=== PATIENT | female | born 1995 | race American Indian/Alaskan Native ===

== ENCOUNTER 2017-02-21 01:39 | Emergency (ER) | payer OTHER ==
[2017-02-21] MEDS ORDERED: NACL 0.9% 1000 ML 1,000 ML IV ONE (01:45)
--- NOTE | 2017-02-21 01:46 | Emergency Department Report ---
ED Seizure HPI - General Chief Complaint: Seizure Stated Complaint: SEIZURE Time Seen by Provider: 02/21/17 01:45 Source: family, RN notes reviewed - History of Present Illness Initial Comments: Patient is a 21 female with a history of seizure disorder presenting status post seizure witnessed by a friend. Patient reports she has a seizure disorder last seizure was in October, but has been noncompliant on her medications. The patient reports she takes any tunneling. Patient cannot recall the dosages but she does have her prescription at home. Patient reports she's had a mild headache for the last few days but has been feeling her normal self prior to today. Otherwise no fevers, chills, dizziness, nausea, vomiting, tongue biting , chest pain, shortness of breath, urinary or bowel incontinence, trauma, or sick contacts. MD Complaint: possible seizure ED Review of Systems ROS: Stated complaint: SEIZURE Other details as noted in HPI Comment: All other systems reviewed and negative ED Past Medical Hx - Past Medical History Previous Medical History?: Yes Hx Seizures: Yes (Takes dilantin) ED Physical Exam - General General appearance: alert, in no apparent distress - Head Head exam: Present: atraumatic, normocephalic - Eye Eye exam: Present: normal appearance - ENT ENT exam: Present: mucous membranes moist - Neck Neck exam: Present: normal inspection - Respiratory Respiratory exam: Present: normal lung sounds bilaterally. Absent: respiratory distress - Cardiovascular Cardiovascular Exam: Present: regular rate, normal rhythm. Absent: systolic murmur, diastolic murmur, rubs, gallop - GI/Abdominal GI/Abdominal exam: Present: soft, normal bowel sounds - Extremities Exam Extremities exam: Present: normal inspection - Back Exam Back exam: Present: normal inspection - Neurological Exam Neurological exam: Present: alert, oriented X3 - Psychiatric Psychiatric exam: Present: normal affect, normal mood - Skin Skin exam: Present: warm, dry, intact, normal color. Absent: rash ED Course Vital Signs 02/21/17 02/21/17 03:24 03:33 Temperature 99.0 F Pulse Rate 93 H Respiratory 20 Rate Blood Pressure 121/73 O2 Sat by Pulse 99 99 Oximetry ED Medical Decision Making - Lab Data Result diagrams: 02/21/17 01:50 02/21/17 01:50 - EKG Data -: EKG Interpreted by Me - EKG Data 02/21/17 04:23 Time 417. Sinus rhythm with sinus arrhythmia at 72 bpm, RAD, left posterior fascicular block, QTC 400 ms, no ST changes no STEMI - Medical Decision Making Had discussion with patient at bedside regarding the importance of medication compliance. Pt cannot recall the dosage of her dilantin, will give her a dilantin 1gm IVPB load here in the ED Pt advised not to operate a vehicle or machinery for 6 months or until she is cleared by her PMD/ Neurologist. Lactic acid noted to be 3.3. This is elevated in the setting of her seizure. Pt did receive a 1L NS IVF bolus s/p blood draw. Pt is not septic or dehydrated Critical care attestation.: If time is entered above; I have spent that time in minutes in the direct care of this critically ill patient, excluding procedure time. ED Disposition Clinical Impression: Seizure disorder Disposition: DISCHARGED TO HOME OR SELFCARE Is pt being admited?: No Condition: Stable Instructions: Epilepsy (ED) Additional Instructions: YOU ARE NOT TO DRIVE OR OPERATE MACHINERY FOR THE NEXT 6MONTHS OR UNTIL YOU ARE CLEARED BY A PHYSICIAN TO RESUME DRIVING Referrals: PRIMARY CARE, [Primary Care Provider] - 3-5 Days
[2017-02-21 02:05] LABS: Basophils % (Auto) 0.5 % (0.0-1.8); Eosinophils % (Auto) 0.5 % (0.0-4.3); Hematocrit 38.6 % (30.3-42.9); Hemoglobin 12.8 gm/dl (10.1-14.3); Mean Corpuscular HGB Conc 33 % (30-34); Mean Corpuscular Hemoglobin 30 pg (28-32); Mean Corpuscular Volume 91 fl (79-97); Platelet Count 374 K/mm3 (140-440); Red Blood Count 4.24 M/mm3 (3.65-5.03); Red Cell Distribution Width 13.7 % (13.2-15.2); White Blood Count 10.2 K/mm3 (4.5-11.0)
[2017-02-21 02:26] LABS: Alanine Aminotransferase 7 units/L (7-56); Albumin 4.1 g/dL (3.9-5); Albumin/Globulin Ratio 1.3 %; Alkaline Phosphatase 52 units/L (35-129); Anion Gap 23 mmol/L; BUN/Creatinine Ratio 17.14; Blood Urea Nitrogen 12 mg/dL (7-17); Calcium 9.3 mg/dL (8.4-10.2); Carbon Dioxide 17 mmol/L (22-30); Chloride 102.2 mmol/L (98-107); Glucose 110 mg/dL (65-100); Potassium 3.3 mmol/L (3.6-5.0); Sodium 139 mmol/L (137-145); Total Protein 7.2 g/dL (6.3-8.2)
[2017-02-21] MEDS ORDERED: K-DUR PO ONE (03:02)
[2017-02-21] MEDS ORDERED: DILANTIN 1,000 MG in NACL 0.9% 250ML 250 ML IV ONE (03:21)
[2017-02-21 03:59] LABS: Urine Drugs of Abuse Note Disclamer
[2017-02-21 04:16] LABS: Bilirubin,Urine NEG (Negative); Blood,Urine MOD (Negative); Ketones,Urine TR mg/dL (Negative); Leukocyte Esterase,Urine TR (Negative); Mucus,Urine 3+ /HPF; Nitrite,Urine NEG (Negative); Protein,Urine <15 mg/dL mg/dL (Negative); Urobilinogen,Urine < 2.0 mg/dL (<2.0)
[2017-02-21 06:32] VITALS: BP 126/74
== END 2017-02-21 05:31 | disposition home or self-care (01) ==
LOC: ED 01:39
DX: G40.909 Epilepsy, unspecified, not intractable, without status epilepticus (principal); R51 Headache
CPT/HCPCS: 36415; 80053; 80307; 81001; 81025; 82140; 82962; 85025; 93005; 93010; 96361; 96365; 99283; J1165; J7030; J7050

== ENCOUNTER 2018-03-12 22:32 | Emergency (ER) | payer OTHER ==
[2018-03-13 00:44] VITALS: BP 107/66
[2018-03-13 01:28] LABS: Basophils % (Auto) 0.5 % (0.0-1.8); Eosinophils # (Auto) 0.1 K/mm3 (0.0-0.4); Eosinophils % (Auto) 1.2 % (0.0-4.3); Hematocrit 41.1 % (30.3-42.9); Hemoglobin 13.6 gm/dl (10.1-14.3); Lymphocytes # (Auto) 2.3 K/mm3 (1.2-5.4); Mean Corpuscular HGB Conc 33 % (30-34); Mean Corpuscular Hemoglobin 31 pg (28-32); Mean Corpuscular Volume 92 fl (79-97); Monocytes # (Auto) 0.8 K/mm3 (0.0-0.8); Monocytes % (Auto) 8.4 % (0.0-7.3); Platelet Count 422 K/mm3 (140-440); Red Blood Count 4.47 M/mm3 (3.65-5.03); Red Cell Distribution Width 13.3 % (13.2-15.2)
[2018-03-13 01:44] LABS: Alanine Aminotransferase 8 units/L (7-56); Albumin 4.5 g/dL (3.9-5); BUN/Creatinine Ratio 21; Blood Urea Nitrogen 15 mg/dL (7-17); Calcium 9.1 mg/dL (8.4-10.2); Hemolysis Index 6
[2018-03-13 02:43] LABS: HCG Qualitative,Urine Negative (Negative)
[2018-03-13 02:45] LABS: Bacteria,Urine 3+ /HPF (Negative); Bilirubin,Urine NEG (Negative); Blood,Urine NEG (Negative); Calcium Oxalate Crystals,Urine 2+; Color,Urine Yellow (Yellow); Mucus,Urine 3+ /HPF
--- NOTE | 2018-03-13 04:09 | Emergency Department Report ---
ED Female HPI - General Chief complaint: Urogenital-Female Stated complaint: PELVIC PAIN Time Seen by Provider: 03/13/18 04:00 Source: patient Mode of arrival: Ambulatory Limitations: No Limitations - History of Present Illness Initial comments: 22-year-old female comes in for complaint of urinary urgency, just dysuria, thick white vaginal discharge with itchiness 7-10 days. Last menstrual period was 03/01/2018. Asked medical history seizures. Denies any pelvic pain or abdominal pain no nausea vomiting or fever no chills. Patient admits to sexual activity with females only. MD Complaint: vaginal discharge, dysuria -: days(s) (7-10) Location: suprapubic Radiation: non-radiating Severity: mild Severity scale (0 -10): 4 Quality: cramping, burning Consistency: intermittent Worsens with: urination Are you Now?: No (sexually active with women only) Associated Symptoms: vaginal discharge, abdominal pain (suprapubic). denies: nausea/vomiting, fever/chills, loss of appetite - Related Data Sexually active: Yes (women only) Previous Rx's Medication Instructions Recorded Last Taken Type Nitrofurantoin Monohyd/M-Cryst 100 mg PO BID #14 capsule 03/13/18 Unknown Rx [Macrobid 100 mg Capsule] metroNIDAZOLE [Metronidazole] 500 mg PO TID #21 tablet 03/13/18 Unknown Rx Allergies Allergy/AdvReac Type Severity Reaction Status Date / Time No Known Allergies Allergy Unverified 03/13/18 00:41 ED Review of Systems ROS: Stated complaint: PELVIC PAIN Other details as noted in HPI Constitutional: denies: chills, fever Cardiovascular: denies: chest pain, palpitations Endocrine: no symptoms reported Gastrointestinal: abdominal pain (suprapubic cramping) Genitourinary: urgency, dysuria, frequency Musculoskeletal: denies: back pain, joint swelling, arthralgia Skin: denies: rash, lesions ED Past Medical Hx - Past Medical History Previous Medical History?: Yes Hx Seizures: Yes (Takes dilantin/epilepsy) - Surgical History Past Surgical History?: No - Social History Smoking Status: Never Smoker Substance Use Type: Alcohol - Medications Home Medications: Home Medications Medication Instructions Recorded Confirmed Last Taken Type Nitrofurantoin Monohyd/M-Cryst 100 mg PO BID #14 capsule 03/13/18 Unknown Rx [Macrobid 100 mg Capsule] metroNIDAZOLE [Metronidazole] 500 mg PO TID #21 tablet 03/13/18 Unknown Rx ED Physical Exam - General Limitations: No Limitations General appearance: alert, in no apparent distress - Head Head exam: Present: atraumatic, normocephalic - Eye Eye exam: Present: normal appearance - ENT ENT exam: Present: mucous membranes moist - External exam: Present: other (patient declined exam she reports she uses a Q- tip to obtain vaginal secretions) - Extremities Exam Extremities exam: Present: normal inspection - Back Exam Back exam: Present: normal inspection - Neurological Exam Neurological exam: Present: alert, oriented X3 - Psychiatric Psychiatric exam: Present: normal affect, normal mood - Skin Skin exam: Present: warm, dry, intact, normal color. Absent: rash ED Course Vital Signs 03/13/18 00:41 Temperature 98.4 F Pulse Rate 70 Respiratory 12 Rate Blood Pressure 107/66 O2 Sat by Pulse 100 Oximetry ED Medical Decision Making - Lab Data Result diagrams: 03/13/18 01:00 03/13/18 01:00 - Medical Decision Making Patient has been evaluated by this provider fast track. Patient declined to have a pelvic exam since she has never been penetrated. Patient reports that she is sexually active with women only. Patient was given a Q-tip to obtain vaginal secretions to check for yeast. Review of patient's labs show that she has a urinary tract infection. test was negative. We will discharge patient on Macrobid 100 mg by mouth twice a day for 7 days. We will give patient metronidazole 500 mg by mouth 3 times a day for 7 days. Discussed with patient if she would like to be treated for gonorrhea and chlamydia I can treat her. Patient replied she would like to be treated. Discussed the patient she needs to follow up with the [employer] provider for further evaluation. Patient verbalized understanding. Critical care attestation.: If time is entered above; I have spent that time in minutes in the direct care of this critically ill patient, excluding procedure time. ED Disposition Clinical Impression: Bacterial vaginosis, Concern about STD in female without diagnosis UTI (urinary tract infection) Qualifiers: Urinary tract infection type: acute cystitis Hematuria presence: without hematuria Qualified Code(s): N30.00 - Acute cystitis without hematuria Disposition: TO HOME OR SELFCARE Is pt being admited?: No Does the pt Need Aspirin: No Condition: Stable Instructions: Bacterial Vaginosis (ED), Urinary Tract Infection in Women (ED), Dysuria (ED) Additional Instructions: Please complete antibiotic as prescribed. Follow-up with [employer] provider. Prescriptions: metroNIDAZOLE [Metronidazole] 500 mg PO TID #21 tablet Nitrofurantoin Monohyd/M-Cryst [Macrobid 100 mg Capsule] 100 mg PO BID #14 capsule Referrals: PRIMARY CARE, [Primary Care Provider] - 3-5 Days [facility] [Outside] - 3-5 Days [facility] [Outside] - 3-5 Days [facility] [Outside] - 3-5 Days [facility] [Outside] - 3-5 Days your,provider [Other] - 3-5 Days Forms: Accompanied Note, Work/School Release Form(ED), STI Treatment and Prevention
[2018-03-13] MEDS ORDERED: XYLOCAINE 1% MPF 5 mL INFILTRATI ONE (05:09)
[2018-03-13] MEDS ORDERED: ROCEPHIN IM ONE (05:09)
[2018-03-13] MEDS ORDERED: ZITHROMAX PO ONE (05:09)
== END 2018-03-13 05:35 | disposition home or self-care (01) ==
LOC: ED 22:32
DX: N39.0 Urinary tract infection, site not specified (principal); N76.0 Acute vaginitis; G40.909 Epilepsy, unspecified, not intractable, without status epilepticus
CPT/HCPCS: 36415; 80053; 81001; 81025; 85025; 87076; 87086; 87186; 87210; 96372; 99283; J0696

== ENCOUNTER 2019-06-06 13:00 | Emergency (ER) | payer OTHER ==
[2019-06-06 15:36] VITALS: BP 113/69
--- NOTE | 2019-06-06 15:44 | Emergency Department Report ---
Minor Respiratory - HPI Chief Complaint: Chest Pain Stated Complaint: CHEST PAIN/WEAKNESS/COUGH/VOMITING Time Seen by Provider: 06/06/19 15:39 Duration: 5 Days Pain Location: Chest Minor Respiratory: Yes Rhinorrhea, Yes Sore Throat, Yes Able to Tolerate Fluids, Yes Cough, Yes Chest Pain (with cough ), No Ear Pain, No Sick Contacts, No Hemoptysis, No Shortness of Breath, No Fever Other History: 24 y/o female comes in for cough with chest pain and post tussive emsis time 1 week. No fever no chills. No sob. ED Review of Systems ROS: Stated complaint: CHEST PAIN/WEAKNESS/COUGH/VOMITING Other details as noted in HPI Comment: All other systems reviewed and negative Respiratory: cough. denies: shortness of breath, wheezing Cardiovascular: chest pain ED Past Medical Hx - Past Medical History Previous Medical History?: No Hx Seizures: Yes (Takes dilantin/epilepsy) - Surgical History Past Surgical History?: No - Social History Smoking Status: Never Smoker - Medications Home Medications: Home Medications Medication Instructions Recorded Confirmed Last Taken Type Nitrofurantoin Monohyd/M-Cryst 100 mg PO BID #14 capsule 03/13/18 Unknown Rx [Macrobid 100 mg Capsule] metroNIDAZOLE [Metronidazole] 500 mg PO TID #21 tablet 03/13/18 Unknown Rx Cetirizine HCl/Pseudoephedrine 1 each PO Q12H #20 tab.er.12h 06/06/19 Unknown Rx [Zyrtec-D Tablet] Minor Respiratory Exam - Exam General: Vital signs noted. No distress. Alert and acting appropriately. HEENT: Yes Moist Mucous Membranes, Yes Rhinorrhea, No Pharyngeal Erythema, No Pharyngeal Exudates, No Conjuctival Injection, No Frontal Tenderness, No Maxillary Tenderness Ear: Neither TM Bulge, Neither TM Erythema, Neither EAC Pain, Neither EAC Discharge Neck: Yes Supple, No Adenopathy Lungs: Yes Good Air Exchange, No Wheezes, No Ronchi, No Stridor, No Cough, No Labored Respirations, No Retractions, No Use of Accessory Muscles, No Other Abnormal Lung Sounds Heart: Yes Regular, No Murmur Abdomen: Yes Normal Bowel Sounds, No Tenderness, No Peritoneal Signs Skin: No Rash, No Edema Neurologic: Alert and oriented, no deficits. Musculoskeletal: Unremarkable. ED Course Vital Signs 06/06/19 15:32 Temperature 98.6 F Pulse Rate 83 Respiratory 18 Rate Blood Pressure 113/69 Blood Pressure 113/69 [Right] O2 Sat by Pulse 99 Oximetry ED Medical Decision Making - Medical Decision Making 24 y/o female comes in for cough with chest pain and post tussive emsis time 1 week. No fever no chills. No sob. [id number] Critical care attestation.: If time is entered above; I have spent that time in minutes in the direct care of this critically ill patient, excluding procedure time. ED Disposition Clinical Impression: Allergic rhinitis Qualifiers: Allergic rhinitis trigger: unspecified Allergic rhinitis seasonality: unspecified Qualified Code(s): J30.9 - Allergic rhinitis, unspecified Disposition: DC- TO HOME OR SELFCARE Is pt being admited?: No Does the pt Need Aspirin: No Condition: Stable Instructions: Allergic Rhinitis (ED) Additional Instructions: Take medication as prescribed. Prescriptions: Cetirizine HCl/Pseudoephedrine [Zyrtec-D Tablet] 1 each PO Q12H #20 tab.er.12h Referrals: [facility] [Outside] - 3-5 Days Forms: Work/School Release Form(ED)
== END 2019-06-06 16:09 | disposition home or self-care (01) ==
LOC: ED 13:00
DX: J30.9 Allergic rhinitis, unspecified (principal); Z79.899 Other long term (current) drug therapy
CPT/HCPCS: 99282